=== PATIENT | male | born 1980 | race Caucasian/White ===

== ENCOUNTER 2021-06-05 10:35 | Emergency (ER) | payer BC, SELFPAY ==
--- NOTE | 2021-06-05 10:45 | ED.SKABFB ---
HPI - Skin/Abscess/Foreign Bdy General Chief complaint: Skin/Abscess/Foreign Body Stated complaint: Rash Time Seen by Provider: 06/05/21 12:02 Source: patient and RN notes reviewed Mode of arrival: ambulatory Limitations: no limitations History of Present Illness HPI narrative: 40-year-old male presents concern for rash. He reports rash started on the top of his feet and is itchy. Reports rash spread to his legs, arms, torso. Reports he has been using athlete's foot cream to the feet without relief. Denies shortness of breath, wheezing, with swollen lips, swollen tongue, nausea, vomiting, fever. He denies any new medications, personal care products, home products. Reports he did start wearing new shoes for work. MD complaint: rash Related Data Allergies Allergy/AdvReac Type Severity Reaction Status Date / Time No Known Allergies Allergy Verified 06/05/21 11:15 Review of Systems Review of Systems: CONSTITUTIONAL: Denies malaise, chills, sweats, or fever. EYES: Denies redness, or discharge. ENT: Denies rhinorrhea, congestion, swollen lips, swollen tongue CARDIOVASCULAR: Denies chest pain, palpitations, or edema. RESPIRATORY: Denies cough or dyspnea. GASTROINTESTINAL: Denies abdominal pain, nausea, vomiting SKIN: Reports itchy rash to the top of his feet, legs, arms, torso MUSCULOSKELETAL: Denies joint painor myalgia. NEUROLOGIC: Denies headache. All systems reviewed & are unremarkable except as noted in HPI and below PMFSH Comments At time of signature, agree with nursing past medical, surgical, social and family history. There is no relevant family history pertinent to the presenting complaint Exam Narrative: GENERAL: Well-appearing, well-nourished, and in no acute distress. HEAD: Normocephalic, atraumatic. EYES: PERRLA, conjunctivae clear, and EOMI. ENT: Mucous membranes moist. Oropharynx without edema, erythema or lesions. NECK: Supple. No lymphadenopathy CHEST: Clear to auscultation. No respiratory distress. HEART: Regular rate and rhythm. SKIN: Warm, dry. Discrete papular rash noted to arms and legs, dorsal aspect of feet has large patches of confluent papules and macules NEURO: Alert and oriented x3. PSYCH: Normal mood and affect Course Course Emergency Course: Patient is aware of diagnosis, understands and agrees to treatment plan. Anticipatory guidance given. Patient agrees to follow-up as directed and is aware of reasons to seek care at the emergency department. Portions of this record may have been created with voice recognition software Level of Care: Express Care Visit Vital Signs Vital signs: Reviewed. MDM - Skin/Abscess/Foreign Bdy MDM Narrative Medical decision making narrative: Does not appear at this time to be erythema multiforme, bullous, SJS, TEN; no evidence at this time to suggest RMSF, endocarditis or Lyme disease; patient looks well, nontoxic and is tolerating oral intake; no neurologic signs or symptoms; no headache, photophobia or neck pain; afebrile; appropriate for initial outpatient treatment; discussed the importance of follow-up, patient agrees; question, viral exanthema, contact dermatitis, allergic dermatitis, eczema, urticaria, tinea. No soft palate or uvula edema, no tongue, lip edema or other mucosal involvement, no respiratory compromise, no stridor, no wheezing, no wheezing, no history of syncope, no hypotension, no nausea, vomiting, or diarrhea. Instructed patient to go to nearest ER immediately for any worsening symptoms including but not limited to: fever, spreading rash, pain, sore throat, headache, dizziness, chest pain, trouble breathing, or any symptoms concerning to the patient. Critical Care Time Critical Care Time Critical Care Time: No Discharge Plan Discharge Clinical Impression: Acute eruption of skin Patient Disposition: Home, Self-Care Condition: Stable Instructions: Acute Rash (ED) Additional Instructions: Wash the area with gentle soap and water
[2021-06-05 11:09] VITALS: BP 124/75; PULSE 82; RESP 16; TEMP 36.4; O2SAT 98
== END 2021-06-05 12:12 | disposition home or self-care (01) ==
PROVIDERS: Emergency Provider Nurse Practitioner
DX: R21 Rash and other nonspecific skin eruption (principal)
CPT/HCPCS: 99213; G0463

== ENCOUNTER 2022-08-19 09:53 | Emergency (ER) | payer BC, SELFPAY ==
[2022-08-19 10:00] VITALS: BP 122/76; PULSE 74; RESP 14; TEMP 36.6; O2SAT 98
--- NOTE | 2022-08-19 10:49 | ED.ABDPAIN ---
HPI - Abdominal Pain General Chief Complaint: Abdominal Pain Stated Complaint: abdo pain/blood in urine Source: patient Mode of arrival: ambulatory Limitations: no limitations History of Present Illness HPI narrative: Patient presents for evaluation of abdominal pain. Symptom onset 3-4 years ago. Pain occurs every other day. He states the last approximately 1 hour and is relieved by getting in a shower or taking ibuprofen. He reports sharp pains in the lower abdomen. He denies any fever, chills, nausea, vomiting or urinary symptoms. He has a bowel movement every other day. He noted blood on tissue when wiping after a bowel movement earlier today. He has to his boss at work if he could leave today. He is advised to get a work note, for which he came to the facility. Related Data Home Medications Medication Instructions Recorded Confirmed No Home Medications 08/19/22 08/19/22 Allergies Allergy/AdvReac Type Severity Reaction Status Date / Time No Known Allergies Allergy Verified 08/19/22 10:15 Review of Systems Review of Systems: CONSTITUTIONAL: Denies fever, chills, or sweats. EYES: Denies visual changes, redness, or discharge. ENT: Denies rhinorrhea, congestion, sore throat, or otalgia. CARDIOVASCULAR: Denies chest pain, palpitations, or edema. RESPIRATORY: Denies cough or dyspnea. GASTROINTESTINAL: Reports abdominal pain, and 1 episode of blood on the tissue when wiping following a bowel movement. GENITOURINARY: Denies dysuria or hematuria. SKIN: Denies rash or itching. MUSCULOSKELETAL: Denies back pain, joint pain, or myalgia. NEUROLOGIC: Denies headache, numbness, dizziness, or weakness. PSYCHIATRIC: Denies anxiety or depression. FORMERLY [facility], [facility] Past Medical History Medical History No pertinent past medical history Surgical History Surgical History Past surgical history of mastectomy Family History Family History Mother Family history non-contributory Social History Social History Smoking status: Never smoker Alcohol intake: never Substance use: never Gender identity (if verbalized by the patient): Male Spiritual care concerns: No Exam Narrative: GENERAL: Well-appearing, well-nourished, and in no acute distress. HEAD: Normocephalic, atraumatic. EYES: PERRLA and EOMI. ENT: Nares clear, no rhinorrhea or epistaxis. Mucous membranes moist. Oropharynx without tonsillar hypertrophy exudate or other lesions. Bilateral TMs pearly vences nonbulging NECK: Supple. No adenopathy or masses. No carotid bruits or JVD CHEST: Clear to auscultation. No respiratory distress. No wheezes rales or rhonchi HEART: Regular rate and rhythm. No murmur heard. Normal peripheral pulses. ABDOMEN: Soft, nontender, nondistended, normal active bowel sounds. EXTREMITIES: Normal range of motion. No edema. SKIN: Warm, dry, no rash. NEURO: No focal deficits. Alert and oriented x3. PSYCH: Normal mood and affect. Course Course Emergency Course: This is a 41-year-old male who presented for evaluation of abdominal pain. This is a chronic issue. He did have 1 episode where he noted blood on the tissue when wiping following a bowel movement. I do not appreciate any hemorrhoids on exam. He has no abdominal tenderness. I believe he can be worked up outpatient by GI. I did offer to transfer him to the ER which he declined. Should go to the emergency department for worsening symptoms. Provided with GI follow-up information. Patient in agreement with plan of care. Level of Care: Express Care Visit Vital Signs Vital signs: Vital Signs Temperature 36.6 C 08/19/22 10:00 Pulse Rate 74 08/19/22 10:00 Respiratory Rate 14 08/19/22 10:00 Blood Pressure 122/76 08/19/22
== END 2022-08-19 10:50 | disposition home or self-care (01) ==
PROVIDERS: Emergency Provider Nurse Practitioner
DX: R10.84 Generalized abdominal pain (principal)
CPT/HCPCS: 99212; G0463

== ENCOUNTER 2023-05-14 10:23 | Emergency (ER) | payer BC, SELFPAY ==
--- NOTE | 2023-05-14 10:25 | ECG_ITS ---
Measurements Intervals [place] Rate: 70 P: 40 IN: 165 QRS: 1 QRSD: 101 T: 42 QT: 359 QTc: 388 Interpretive Statements SINUS RHYTHM BASELINE ARTIFACT LIMITS INTERPRETATION NO PREVIOUS ECG AVAILABLE FOR COMPARISON Electronically Signed On 05-14-2023 15:18:23 CLEAN UP PERSON by Elvis Obrien M.D.
[2023-05-14 11:41] VITALS: BP 114/70; PULSE 66; RESP 16; TEMP 36.5; O2SAT 98
--- NOTE | 2023-05-14 13:28 | ED.ARRPALP ---
HPI - Arrhythmia/Palpitations General Chief Complaint: Arrhythmia/Palpitations Stated Complaint: migraine, palpatations Time Seen by Provider: 05/14/23 11:59 Source: patient Limitations: no limitations History of Present Illness HPI narrative: Patient is a 42-year-old male presents to the emergency department complaining of a headache and lightheadedness. Patient notes around 9:00 a.m. 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 Patient is to history of migraines and this feels similar to his history of migraines. Patient states he has never seen a neurologist however receive his primary on for Neurology referral. Patient is to history of imaging of his head. Patient denies anyone having some symptoms around. Patient admits to a recent illness in which she had influenza in his chest getting over this. Patient admits to taking DayQuil and NyQuil for that. Patient admits to his urine being darker in color as of late has been maintaining the greatest hydration status. Patient denies any chest pain, difficulty breathing, recent injuries, numbness, weakness, nausea, vomiting, diarrhea, melena, hematochezia, confusion, fever, vision changes. Patient denies any history of abnormal heart rhythms. Related Data Allergies Allergy/AdvReac Type Severity Reaction Status Date / Time No Known Allergies Allergy Verified 05/14/23 11:45 Review of Systems Review of Systems: A 10 system review of systems was completed on the patient and is negative except for what is stated in the HPI. Nursing and ancillary documentation was reviewed. [facility] Past Medical History Medical History (Updated 05/14/23 @ 13:33 by Amado Prasad DO) No pertinent past medical history Surgical History Surgical History Past surgical history of mastectomy Family History Family History Mother Family history non-contributory Social History Social History Smoking status: Never smoker Alcohol intake: never Substance use: never Gender identity (if verbalized by the patient): Male Spiritual care concerns: No Comments At time of signature, I have reviewed and agree with nursing past medical, surgical, social and family history unless otherwise noted. Please see the nursing chart for further information. There is no relevant family history pertinent to the presenting complaint. Exam Narrative: CONST: No acute distress. Well nourished. HENMT: Head is normocephalic and atraumatic. Moist mucous membranes. No posterior oropharynx erythema. No temporal artery tenderness palpation. EYES: No conjunctival icterus, injection, or pallor. PERRL. NECK: No meningeal signs. RESP: Able to speak in full sentences. Normal respiratory effort. CTAB. CARDIO: Regular rate. Regular rhythm. 2+ DP and radial pulses bilaterally. GI: Nondistended. No tenderness to palpation. Soft. : No CVA tenderness to palpation. SKIN: No rashes or lesions noted on exposed skin. NEURO: Oriented x3. Moves all extremities. No focal neurological deficits. Cranial nerves 2-12 intact. EXTREM/MSK/BACK: No pedal edema. PSYCH: Normal affect. Course Vital Signs Vital signs: Vital Signs Temperature 97.7 F 05/14/23 11:41 Pulse Rate 66 05/14/23 11:41 Respiratory Rate 16 05/14/23 11:41 Blood Pressure 114/70 05/14/23 11:41 Pulse Oximetry 98 05/14/23 11:41 Temperature 97.7 F 05/14/23 11:41 Pulse Rate 66 05/14/23 11:41 Respiratory Rate 16 05/14/23 11:
--- NOTE | 2023-05-14 13:57 | PC.NURSE ---
Pt refuses lab work and IV. Stated he just wants to go home . ERP made aware.
[2023-05-14 14:17] LABS: Influenza A QL RT-PCR Negative (Negative); Influenza B QL RT-PCR Negative (Negative); RSV RNA, RT-PCR Negative (Negative); SARS-CoV-2 RNA PCR Negative (Negative)
== END 2023-05-14 14:12 | disposition home or self-care (01) ==
PROVIDERS: Emergency Provider Student in an Organized Health Care Education/Training Program
DX: G43.909 Migraine, unspecified, not intractable, without status migrainosus (principal); Z20.822 Contact with and (suspected) exposure to COVID-19
CPT/HCPCS: 87637; 93005; 99283

== ENCOUNTER 2024-12-30 11:55 | Emergency (ER) | payer BC, SELFPAY ==
--- NOTE | 2024-12-30 11:57 | ED.GENADULT ---
HPI - General Adult General Chief complaint: Abdominal Pain Stated complaint: L side pain Time Seen by Provider: 12/30/24 11:56 Source: patient Mode of arrival: ambulatory Limitations: no limitations History of Present Illness HPI narrative: Pt is a 44 y/o male presenting with c/o LLQ pain. Pain began suddenly at 6am this morning. Additional sx reported include nausea, dizziness. LBM was Saturday and he states that is abnormal for him. 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 NO additional complaints. Related Data Home Medications ?Medication ?Instructions ?Recorded ?Confirmed ?Last Taken ?Type atogepant 60 mg tablet (Qulipta) mg 12/30/24 Unknown History Allergies Allergy/AdvReac Type Severity Reaction Status Date / Time No Known Allergies Allergy Verified 12/30/24 12:11 Review of Systems Review of Systems: CONSTITUTIONAL: Denies body aches, fever, chills, or sweats. EYES: Denies visual changes, redness, or discharge. ENT: Denies rhinorrhea, congestion, sore throat, or otalgia. CARDIOVASCULAR: Denies chest pain, palpitations, or edema. RESPIRATORY: Denies cough or dyspnea. GASTROINTESTINAL: Reports abdominal pain, nausea, denies vomiting, or diarrhea. GENITOURINARY: Denies dysuria or hematuria. SKIN: Denies rash, itching, or wounds. MUSCULOSKELETAL: Denies back pain, joint pain, or myalgia. NEUROLOGIC: reports dizziness,Denies headache, numbness, tingling, or weakness. PSYCH: Denies depression or anxiety. All systems reviewed & are unremarkable except as noted in HPI and below PMFSH Past Medical History Medical History No pertinent past medical history Surgical History Surgical History Past surgical history of mastectomy Family History Family History Mother Family history non-contributory Social History Social History Smoking status: Never smoker Alcohol intake: never Substance use: never Gender identity (if verbalized by the patient): Male Spiritual care concerns: No Exam Narrative: GENERAL: Well-appearing, well-nourished, and in no acute distress. HEAD: Normocephalic, atraumatic. EYES: EOMI. No redness or drainage. Conjunctivae normal. ENT: Mucous membranes pink and moist. NECK: Normal AROM. Supple. CHEST: No respiratory distress. Clear to auscultation. HEART: Regular rate and rhythm. No murmur appreciated. Normal peripheral pulses. ABDOMEN: Soft, nondistended, normal active bowel sounds. Mild TTP to LLQ MUSCULOSKELETAL: No bony tenderness. EXTREMITIES: Normal range of motion. No edema. SKIN: Warm, dry, no rash. Capillary refill normal. Normal skin turgor. NEURO: No focal deficits. Alert and oriented x3. Gait steady. PSYCH: Normal affect. No signs of depression or anxiety. Course Course Level of Care: Express Care Visit Vital Signs Vital signs: Vital Signs Temperature 97.9 F 12/30/24 12:08 Pulse Rate 76 12/30/24 12:08 Respiratory Rate 16 12/30/24 12:08 Blood Pressure 110/81 12/30/24 12:08 Pulse Oximetry 98 12/30/24 12:08 Temperature 97.9 F 12/30/24 12:08 Pulse Rate 76 12/30/24 12:08 Respiratory Rate 16 12/30/24 12:08 Blood Pressure 110/81 12/30/24 12:08 Pulse Oximetry 98 12/30/24 12:08 Medical Decision Making MDM Narrative Medical decision making narrative: Given the patients reported sx, I recommended he be transferred to ER via POV for further diagnostic work up. Pt initially agreed and then when nurse went in to have him sign transfer paper, he declined. Pt then made aware that he is leaving AMA--pt refused to sign AMA paper. Vital Signs Vital Signs: Vital Signs Temperature 97.9 F 12/30/24 12:08 Pulse Rate 76 12/30/24 12:08 Respiratory Rate 16 12/30/24 12:08 Blood Pressure 110/81 12/30/24 12:08 Pulse Oximetry 98 12/30/24 12:08 Temperature 97.9 F 12/30/24 12:08 Pulse Rate 76 12/30/24 12:08 Respiratory Rate 16 12/30/24 12:08 Blood Pressure 110/81 12/30/24 12:08 Pulse Oximetry 98 12/30/24 12:08 Discharge Plan Discharge Clinical Impression: Abdominal pain, acute, left lower quadrant, Nausea, Constipation, Dizziness Patient Disposition: Left Against Medical Advice Condition: Stable Patient Language: Grenadian Prescriptions: No Action Qulipta 60 mg tablet Follow-up/Referrals: UNKNOWN,DOCTOR [Primary Care Provider] Time of Disposition: 12:25
[2024-12-30 12:08] VITALS: BP 110/81; PULSE 76; RESP 16; TEMP 36.6; O2SAT 98
== END 2024-12-30 12:33 | disposition left against medical advice (07) ==
PROVIDERS: Emergency Provider Registered Nurse
DX: R10.32 Left lower quadrant pain (principal); R11.0 Nausea; K59.00 Constipation, unspecified; R42 Dizziness and giddiness
CPT/HCPCS: 99211; G0463

== ENCOUNTER 2025-03-10 13:13 | Emergency (ER) | payer BC, SELFPAY ==
--- NOTE | ~2025-03-10 | XR_ITS ---
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 Technique: 2 views obtained. Findings: The lungs are clear, no effusion. No pneumothorax. Heart is normal size. Mediastinal and hilar contours are within normal limits. Bony thorax no acute abnormality. Impression: No acute cardiopulmonary abnormality. Reviewed, dictated and finalized at location P. TEGIC ALLIANCES MANAGER Impression: No acute cardiopulmonary abnormality.
--- NOTE | ~2025-03-10 | CT_ITS ---
EXAM/PROCEDURE: CTA chest abdomen pelvis HISTORY: aorta. CP rad to R shoulder COMPARISON: None available. TECHNIQUE: Contrast-enhanced CT angiography FINDINGS: Within the chest, the heart and great vessels appear normal. No thoracic aortic aneurysm, dissection or central/large pulmonary emboli. Three-vessel left-sided arch appears normal. Visualized portions of the subclavian arteries on both sides appear patent. Heart size normal with no pericardial effusion or bulky lymphadenopathy. Lungs are clear. In the abdomen and pelvis, the abdominal aorta, celiac axis, both mesenteric and renal arteries are patent. Pelvic inflow and outflow arteries are patent. The left renal vein is anterior to the aorta, although there is an accessory smaller left renal vein that is retroaortic. 6 mm upper pole nonobstructing stone and 2 mm nonobstructing mid pole stone. No left-sided stones. 2.5 cm simple left renal cyst. No hydroureteronephrosis. Urinary bladder normal prostate borderline enlarged. Normal size appendix. Contracted gallbladder. Pancreas liver spleen stomach and adrenal glands appear normal. No bulky mesenteric or retroperitoneal lymphadenopathy or masses seen. The bones appear intact. Mild degenerative changes throughout the thoracolumbar spine. Mild degenerative changes in both hips as well. IMPRESSION: 1. No aortic aneurysm or dissection in the chest abdomen or pelvis. The arteries all appear within normal limits. 2. Other chronic appearing findings as above. Reviewed, dictated and finalized at location A. SCOPY NURSE IMPRESSION: 1. No aortic aneurysm or dissection in the chest abdomen or pelvis. The arterie s all appear within normal limits. 2. Other chronic appearing findings as above.
--- OUTSIDE RECORDS SUMMARY | 2025-03-10 12:45 | XMS_ITS | Encounter Summary ---
Author Organization [facility] Address [address] [place] [address] Care Team Providers Care Vp Scientific Name Role Phone Starla Frazier NP Primary Care Provider Reason for Visit * Reason Comments Epigastric Pain Started this morning . Rating pain at 8 on a 1-10 pain scale. Lots of burping. Constant feeling of pain. Tums received at work. Encounter Details Date Type Department Care Team (Late st Contact Info) Description 03/10/2025 12:45 PM R D MANAGER Office Visit [facility] at [address] [id number] Roro Murphy PA [address] [place] [address] [address] [place] [address] Epigastric pain (Primary Dx) Social History Tobacco Use Types Packs/Day Years Used Date Smoking Tobacco: Former Vaping Smokeless Tobacco: Never Alcohol Use Standard Drinks/Week Comments Never 0 (1 standard drink = 0.6 oz pur e alcohol) PHQ-2 Answer Date Recorded PHQ-2 Total Score (If total score is 3 or more points, staff should administer the PHQ-9) 0 02/18/2025 AUDIT-C Answer Date Recorded Q1: How often do you have a drink containing alcohol? Never 12/20/2024 Q2: How many drinks containi ng alcohol do you have on a typical day when you are drinking? Patient does not drink Q3: How often do you have si x or more drinks on one occasion? Never 12/20/2024 Personal Safety Answer Date Recorded Have you ever been in or are you currently in a harmful physical or emotional relationship or is someone making you feel afraid or unsafe? Denies 02/21/2025 Sex and Gender Information Value Date Recorded Sex Assigned at Not on file Legal Sex Male 7:44 PM CDT Gender Identity Not on file Sexual Orientation Not on file documented as of this encounter Last Filed Vital Signs Vital Sign Reading Time Taken Comments Blood Pressure 120/77 03/10/2025 12:32 PM R D MANAGER Pulse 78 03/10/2025 12:32 PM R D MANAGER Temperature 36.8 C (98.3 F) 03/10/2025 12:32 PM R D MANAGER Respiratory Rate 20 03/10/2025 12:32 PM R D MANAGER Oxygen Saturation 98% 03/10/2025 12:32 PM R D MANAGER Inhaled Oxygen Concentration - - Weight 96.2 kg (212 lb) 03/10/2025 12:32 PM R D MANAGER Height 182.9 cm (6') 03/10/2025 12:32 PM R D MANAGER Body Mass Index 28.75 03/10/2025 12:32 PM R D MANAGER documented in this encounter Progress Notes * Roro Murphy PA - 03/10/2025 12:45 PM CST Images from the original note were not included. Subjective/Objective Patient ID: Steve Richards is a 44 y.o. male. This patient has verbally consented to recording this visit in order to utilize AI technology in generating this note. Chief Complaint Epigastric Pain (Started this morning. Rating pain at 8 on a 1-10 pain scale. Lots of burping. Constant feeling of pain. Tums received at work. ) History of Present Illness Steve Richards is a 44 year old male who presents with abdominal pain. Epigastric pain - Severe burning pain in the epigastric region since this morning - Pain intensity rated 8/10 - Radiates to the right shoulder and back of the neck - No relief with Tums taken at work - No associated nausea, vomiting, diarrhea, or fever - No shortness of breath - Initially described as thought I was having a heart attack - No hx of GERD Review of Systems All other systems reviewed and are negative. Physical Exam Physical Exam Constitutional: General: He is not in acute distress. HENT: Head: Normocephalic and atraumatic. Right Ear: External ear normal. Left Ear: External ear normal. Nose: Nose normal. Mouth/Throat: Pharynx: Oropharynx is clear. Eyes: Pupils: Pupils are equal, round, and reactive to light. Cardiovascular: Rate and Rhythm: Normal rate and regular rhythm. Pulmonary: Effort: Pulmonary effort is normal. No respiratory distress. Breath sounds: Normal breath sounds. No wheezing or rhonchi. Musculoskeletal: General: Normal range of motion. Cervical back: Normal range of motion. Skin: General: Skin is warm and dry. Neurological: General: No focal deficit present. Mental Status: He is alert and oriented to person, place, and time. Psychiatric: Mood and Affect: Mood normal. Behavior: Behavior normal. Vitals: 03/10/25 1232 BP: 120/77 Pulse: 78 Resp: 20 Temp: 36.8 ??C (98.3 ??F) TempSrc: Oral SpO2: 98% Weight: 96.2 kg (212 lb) Height: 182.9 cm (6') No results found. Past Medical History: Diagnosis Date GERD (gastroesophageal reflux disease) Migraine with aura Current Outpatient Medications: atogepant (Qulipta) 60 mg tablet, Take 60 mg by mouth daily, Disp: 30 tablet, Rfl: 11 cyclobenzaprine (FLEXERIL) 10 mg tablet, Take 1 tablet (10 mg total) by mouth 2 (two) times a day as needed for muscle spasms, Disp: 20 tablet, Rfl: 0 ibuprofen (ADVIL,MOTRIN) 800 mg tablet, Take 1 tablet (800 mg total) by mouth every 6 (six) hours as needed for pain, Disp: 90 tablet, Rfl: 0 omeprazole (PriLOSEC) 40 mg capsule, Take 1 capsule (40 mg total) by mouth daily, Disp: , Rfl: rizatriptan (MAXALT) 10 mg tablet, Take 1 tablet (10 mg total) by mouth once as needed for migraineMay repeat in 2 hours if unresolved. Do not exceed 30 mg in 24 hours., Disp: 9 tablet, Rfl: 3 triamcinolone (KENALOG) 0.5 % ointment, Apply topically 2 (two) times a day, Disp: 30 g, Rfl: 0 No Known Allergies Social History Tobacco Use Smoking status: Former Types: Vaping Smokeless tobacco: Never Substance and Sexual Activity Drug use: Never Sexual activity: Defer Alcohol Use: Not At Risk (12/20/2024) AUDIT-C Frequency of Alcohol Consumption: Never Average Number of Drinks: Patient does not drink Frequency of Binge Drinking: Never Past Surgical History: Procedure Laterality Date NO PAST SURGERIES Procedures Assessment/Plan Results No results found for this or any previous visit (from the past 4 hours). Assessment & Plan Acute onset epigastric pain with differential including GERD, cardiac etiology, pancreatitis, cholecystitis, etc. - Referred to emergency room for further evaluation and management Diagnoses and all orders for this visit: Epigastric pain (Primary) Disposition ER ANNMARIE Bernal Cosigned by Albert Lopez MD at 03/10/2025 8:44 PM R D MANAGER R D MANAGER R D MANAGER documented in this encounter Plan of Treatment Not on file documented as of this encounter Visit Diagnoses Diagnosis Epigastric pain- Primary Abdominal pain, epigastric documented in this encounter Care Teams Vp Scientific Relationship Specialty Start Date End Date Starla Frazier NP [address] [place] [address] DR FERRELL [address] [place] [id number] PCP - General Family Medicine 02/18/25 documented as of this encounter
--- NOTE | 2025-03-10 13:15 | ECG_ITS ---
Test Date: 2025-03-10 13:20:32 Measurements Intervals [place] Rate: 82 P: 29 MT: 181 QRS: -2 QRSD: 102 T: 24 QT: 347 QTc: 405 Interpretive Statements SINUS RHYTHM INCOMPLETE RIGHT BUNDLE BRANCH BLOCK BASELINE ARTIFACT- I, II, III, AVR, AVL, AVF, V1 BORDERLINE ECG No previous ECG available for comparison Electronically Signed On 03-10-2025 13:24:19 HUMAN RESOURCES HR GENERALIST by Haresh Mcgraw D.O.
[2025-03-10 13:16] VITALS: BP 143/90; PULSE 80; RESP 16; TEMP 36.4; O2SAT 100
[2025-03-10 13:34] LABS: Hematocrit 45.6 % (42.0-52.0); Hemoglobin 15.2 g/dL (14.0-18.0); Immature Granulocyte Percent A 0.3 % (0-0.5); Lymphocytes Absolute Auto 2.72 K/mm3 (0.9-3.2); Mean Corpuscular HGB Conc 33.3 g/dl (32-36); Mean Corpuscular Hemoglobin 28.7 pg (26-34); Mean Corpuscular Volume 86.2 fl (80-100); Nucleated Red Blood Cells Absolute Auto 0.000 K/mm3 (0.0-0.012); Nucleated Red Blood Cells Perc 0.0 % (0.0-0.2); Platelet Count Result 337 k/mm3 (150-375); Red Blood Count 5.29 M/mm3 (4.6-6.20); White Blood Count 14.8 K/mm3 (4.5-10.0)
[2025-03-10 13:54] LABS: INR 0.9; Partial Thromboplastin Time 26.3 Seconds (22.3-36.8); Prothrombin Time 12.4 Seconds (11.1-14.7)
[2025-03-10 14:17] LABS: Alanine Aminotransferase 30 U/L (6-50); Albumin Level 4.8 g/dL (3.5-5.1); Alkaline Phosphatase 85 U/L (38-126); Anion Gap 10 mmol/L (4-12); Aspartate Amino Transferase 34 U/L (17-59); Bilirubin,Total 0.4 mg/dL (0.2-1.3); Blood Urea Nitrogen 13 mg/dL (9-20); Calcium 10.3 mg/dL (8.4-10.2); Carbon Dioxide 29 mmol/L (22-30); Chloride 101 mmol/L (98-107); Estimated CRCL calculation 90 ml/min; Estimated Glomerular Filt Rate > 60; Glucose 118 mg/dL (65-110); Lipase 82 U/L (23-300); Potassium 4.3 mmol/L (3.4-5.0); Sodium 140 mmol/L (137-145); Total Protein 8.1 g/dL (6.3-8.2)
[2025-03-10 14:28] LABS: Troponin I < 0.012 ng/mL (0.000-0.034)
[2025-03-10 16:19] VITALS: BP 133/80; PULSE 89; RESP 20; O2SAT 100
--- NOTE | 2025-03-10 16:40 | ECG_ITS ---
Test Date: 2025-03-10 16:42:16 Measurements Intervals [place] Rate: 80 P: 34 [place]: 172 QRS: -8 QRSD: 110 T: 25 QT: 349 QTc: 404 Interpretive Statements SINUS RHYTHM INCOMPLETE RIGHT BUNDLE BRANCH BLOCK BORDERLINE ECG Compared to ECG 03/10/2025 13:20:32 NO SIGNIFICANT CHANGE Electronically Signed On 03-10-2025 19:56:47 CHIMNEY BUILDER by Haresh Mcgraw D.O.
[2025-03-10] MEDS: MORPHINE SULFATE (*CRX) 4 MG/ML INJ IV PUSH (17:10)
[2025-03-10 17:11] LABS: Troponin I < 0.012 ng/mL (0.000-0.034)
[2025-03-10] MEDS: FAMOTIDINE 20 MG/2 ML VIAL IV PUSH (17:41)
[2025-03-10] MEDS: PANTOPRAZOLE SODIUM IV 40 MG VIAL IV PUSH (17:41)
[2025-03-10 17:44] VITALS: BP 122/86; PULSE 88; RESP 20; O2SAT 96
--- NOTE | 2025-03-10 19:37 | ED_ITS ---
HPI - Chest Pain General Chief Complaint: Chest Pain Stated Complaint: CP Time Seen by Provider: 03/10/25 15:01 History of Present Illness HPI narrative: Patient was having some slight epigastric discomfort, went to work and had a [employer] and started having more epigastric pain, feels like it is going to his right shoulder. Related Data Home Medications ?Medication ?Instructions ?Recorded ?Confirmed ?Last Taken ?Type atogepant 60 mg tablet (Qulipta) mg 12/30/24 Unknown History Allergies Allergy/AdvReac Type Severity Reaction Status Date / Time No Known Allergies Allergy Verified 03/10/25 13:19 Review of Systems 2 Review of Systems: All systems reviewed & are unremarkable except as noted in HPI and below PMFSH Past Medical History Medical History No pertinent past medical history Surgical History Surgical History Past surgical history of mastectomy Family History Family History Mother Family history non-contributory Social History Social History Smoking status: Never smoker Alcohol intake: never Substance use: never Gender identity (if verbalized by the patient): Male Spiritual care concerns: No Exam 2 Narrative: EXAMINATION OF ORGAN SYSTEMS/BODY AREAS: Constitutional: Vital signs per nursing GENERAL:No acute distress, non-toxic appearing. HEAD: Normal with no signs of head trauma. EYES: EOMI, conjunctiva normal ENT: Hearing grossly intact LUNGS: Nonlabored breathing. HEART: Regular rate and rhythm ABD: Soft, slight epigastric tenderness EXT: Normal range of motion SKIN: No rashes or lesions. NEURO: Alert. No gross focal sensory or strength deficits. PSYCH: Normal affect Course Vital Signs Vital signs: Vital Signs Temperature 97.6 F 03/10/25 13:16 Pulse Rate 80 03/10/25 13:16 Respiratory Rate 16 03/10/25 13:16 Blood Pressure 143/90 H 03/10/25 13:16 Pulse Oximetry 100 03/10/25 13:16 Oxygen Delivery Room Air 03/10/25 13:16 Temperature 97.6 F 03/10/25 13:16 Pulse Rate 88 03/10/25 17:44 Respiratory Rate 20 03/10/25 17:44 Blood Pressure 122/86 03/10/25 17:44 Pulse Oximetry 96 03/10/25 17:44 Oxygen Delivery Room Air 03/10/25 16:19 [facility] MDM Narrative Medical decision making narrative: ED COURSE AND MEDICAL DECISION MAKIN-year-old male presenting with chest pain. EKG done in triage negative for acute ischemic changes. Cardiac workup is initiated. EKG: Performed in triage and interpreted by me. Normal sinus rhythm. Rate 82. Normal axis. [place] normal. QRS duration normal. QTc normal. No pathologic Q waves. No ST segment elevation or depression to suggest acute ischemia. No RV strain pattern. HEART score is 0 with no acute ischemic changes on EKG and negative troponin making ACS unlikely. Wells low risk with negative PERC making PE unlikely I did consider possible dissection, biliary colic, gastritis/PUD. Given small dose of morphine, Pepcid, Protonix. EKG - 12-Lead: Performed at 1642. Interpreted by me. Sinus rhythm. Rate 80. Normal axis. [place]-interval normal. QRS duration normal. QTc normal. No ST segment elevation or depression. T-wave normal. Impression: No EKG evidence of acute ischemia or dysrhythmia. On repeat evaluation just prior to discharge, the patient is no acute distress; 2nd troponin is negative. I had a long discussion with the patient and with shared decision making, he is comfortable with outpatient management. He was given clear return instructions by myself in person as well as on discharge paperwork. Differential Diagnosis Differential Diagnosis: gastritis, PUD, ACS, dissection, biliary colic Lab Data 03/10/25 13:29 03/10/25 13:29 Labs: Lab Results 03/10/25 03/10/25 Range/Units 13:29 16:39 WBC 14.8 H (4.5-10.0) K/mm3 RBC 5.29 (4.6-6.20) M/mm3 Hgb 15.2 (14.0-18.0) g/dL Hct 45.6 (42.0-52.0) % MCV 86.2 (80-100) fl MCH 28.7 (26-34) pg MCHC 33.3 (32-36) g/dl RDW 12.8 (11.5-14.5) % Plt Count 337 (150-375) k/mm3 MPV 8.9 (7.4-10.4) fl Immature Gran % (Auto) 0.3 (0-0.5) % Neut % (Auto) 72.5 (45.5-73.1) % Lymph % (Auto) 18.4 (18.3-44.2) % Davidson % (Auto) 6.3 (2.6-8.5) % Eos % (Auto) 2.0 (0-4.4) % Baso % (Auto) 0.5 (0.2-1.2) % Lymph # (Auto) 2.72 (0.9-3.2) K/mm3 Davidson # (Auto) 0.9 H (0.1-0.6) K/mm3 Eos # (Auto) 0.3 (0-0.3) K/mm3 Baso # (Auto) 0.1 (0.0-0.1) K/mm3 Abs Immat Gran (auto) 0.05 H (0.00-0.031) K/mm3 Absolute Neuts (auto) 10.7 H (1.3-6.7) K/mm3 Absolute Nucleated RBC 0.000 (0.0-0.012) K/mm3 Nucleated RBC % 0.0 (0.0-0.2) % PT 12.4 (11.1-14.7) Seconds INR 0.9 APTT 26.3 (22.3-36.8) Seconds Sodium 140 (137-145) mmol/L Potassium 4.3 (3.4-5.0) mmol/L Chloride 101 (98-107) mmol/L Carbon Dioxide 29 (22-30) mmol/L Anion Gap 10 (4-12) mmol/L BUN 13 (9-20) mg/dL Creatinine 1.02 (0.7-1.3) mg/dL Estim Creat Clear Calc 90 ml/min Estimated GFR > 60 (59 - ) Glucose 118 H (65-110) mg/dL Calcium 10.3 H (8.4-10.2) mg/dL Total Bilirubin 0.4 (0.2-1.3) mg/dL AST 34 (17-59) U/L ALT 30 (6-50) U/L Alkaline Phosphatase 85 (38-126) U/L Troponin I < 0.012 < 0.012 (0.000-0.034) ng/mL Total Protein 8.1 (6.3-8.2) g/dL Albumin 4.8 (3.5-5.1) g/dL Lipase 82 (23-300) U/L Imaging Data Radiologist's impression: ITS Impressions Chest X-Ray 03/10/25 13:53 Impression: No acute cardiopulmonary abnormality. Chest/Abdomen/Pelvis CTA 03/10/25 15:40 IMPRESSION: 1. No aortic aneurysm or dissection in the chest abdomen or pelvis. The arteries all appear within normal limits. 2. Other chronic appearing findings as above. Discharge Plan Discharge Clinical Impression: Atypical chest pain Patient Disposition: Home Condition: Stable Instructions: Chest Pain (ED) Additional Instructions: Try to avoid any spicy, greasy or fried, acidic foods, sodas or caffeine, and alcohol. Follow-up with your PCP and a GI specialist and come back to the ER for any further issues. Patient Language: [place] Citizen Prescriptions: New alum-mag hydroxide-simeth [Maalox Advanced] 200-200-20 mg/5 mL suspension 10 ml PO QID PRN (Reason: dyspepsia) Qty: 200 0RF Rx Instructions: administer between meals and at bedtime famotidine 20 mg tablet 20 mg PO DAILY Qty: 30 0RF No Action Qulipta 60 mg tablet Follow-up/Referrals: Bert Skaggs MD [Physician, Gastroenterology] - 2 Days UNKNOWN,DOCTOR [Primary Care Provider] Stand Alone Forms: Work/School Release IP
--- OUTSIDE RECORDS SUMMARY | 2025-03-10 20:51 | XMS_ITS | Clinical Summary ---
Author Organization [facility] Address [address] [place] [address] Care Team Providers Care Pmo Analyst Name Role Phone Starla Frazier NP Primary Care Provider Allergies No known active allergies Medications omeprazole (PriLOSEC) 40 mg capsule Take 1 capsule (40 mg total) by mouth daily Active atogepant (Qulipta) 60 mg tablet Take 60 mg by mouth daily 30 tablet 11 06/26/19 25 Active rizatriptan (MAXALT) 10 mg tabletIndicatio ns:Migraine Take 1 tablet (10 mg total) by mouth once as needed for migraine May repeat in 2 hours if unresolved. Do not exceed 30 mg in 24 hours. 9 tablet 3 09/18/19 25 Active triamcinolone (KENALOG) 0.5 % ointmentIndicat ions:Eczema, unspecified type Apply topically 2 (two) times a day 30 g 09/22/19 25 Active cyclobenzaprine (FLEXERIL) 10 mg tablet Take 1 tablet (10 mg total) by mouth 2 (two) times a day as needed for muscle spasms 20 tablet 02/22/20 25 Active ibuprofen (ADVIL,MOTRIN) 800 mg tabletIndicatio ns:Pain Take 1 tablet (800 mg total) by mouth every 6 (six) hours as needed for pain 90 tablet 03/07/20 25 Active hydrOXYzine (ATARAX) 25 mg tablet Take 1 tablet (25 mg total) by mouth every 6 (six) hours 12 tablet 01/14/20 24 025 Discontinued LORazepam (Ativan) 1 mg tablet Take 1 tablet (1 mg total) by mouth 3 (three) times a day as needed for anxiety for up to 15 doses 15 tablet 01/14/20 24 025 Discontinued gabapentin (NEURONTIN) 100 mg capsule Take 1 capsule (100 mg total) by mouth 3 (three) times a day For post-herpetic neuralgia: Take 1 tablet on day 1, Then take 2 tablets on day 2, Then take 3 tablets on day 3 and every day after that as instructed by your doctor. 90 capsule 11 03/07/20 24 025 Discontinued meloxicam (MOBIC) 7.5 mg tablet Take 1 tablet (7.5 mg total) by mouth daily as needed for pain 30 tablet 03/07/20 24 025 Discontinued cyclobenzaprine (FLEXERIL) 10 mg tabletIndicatio ns:Right torticollis Take 1 tablet (10 mg total) by mouth 2 (two) times a day as needed for muscle spasms 20 tablet 03/14/20 24 025 Discontinued cyclobenzaprine (FLEXERIL) 5 mg tabletIndicatio ns:Neck pain Take 1 tablet (5 mg total) by mouth 3 (three) times a day as needed for muscle spasms 30 tablet 06/11/19 25 025 Discontinued tamsulosin (FLOMAX) 0.4 mg extended release capsule TAKE 1 CAPSULE BY MOUTH EVERY DAY 90 capsule 1 07/28/19 25 025 Discontinued ofloxacin (FLOXIN) 0.3 % otic solutionIndicat ions:Traumatic rupture of right ear drum, initial encounter Administer 5 drops into each ear 2 (two) times a day 10 mL 10/25/19 25 025 Discontinued Active Problems Problem Noted Date Diagnosed Date Eczema 02/18/2025 Assessment & Plan (02/18/2025 3:54 PM PET SITTER): -Chronic, controlled -Currently utilizes triamcinolone 0.5% ointment as needed -Patient endorses adequate relief with current regimen -Patient denies any severe eczema flares recently -Encouraged patient to reach out to office if he begins to experience significant flare -Continue current treatment plan Overweight with body mass in dex (BMI) of 28 to 28.9 in adult 02/18/2025 Assessment & Plan (02/18/2025 10:32 AM PET SITTER): Wt Readings from Last 3 Encounters: 02/18/25 95.7 kg (211 lb) 01/31/25 96 kg (211 lb 11.2 oz) 01/24/25 95.7 kg (211 lb) Body mass index is 28.62 kg/m . -Stable, at goal of <30 bmi -Discussed recommendations for exercise at least 30 minutes moderate to vigorous exercise as tolerated most days of the week. (minimum 150 minutes weekly) -Discussed importance of well-balanced diet Gastroesophageal reflux disease without esophagi tis 02/18/2025 Assessment & Plan (02/18/2025 10:32 AM PET SITTER): -chronic, controlled -patient currently takes OTC medication as needed -patient encouraged to continue avoiding trigger foods and remaining upright at least 30 minutes after eating or drinking -continue current treatment plan Chest pain 08/05/2024 Hepatic steatosis 06/24/2024 Enlarged prostate 06/24/2024 Renal calculi 06/24/2024 Kidney lesion 06/24/2024 Assessment & Plan (06/24/2024 1:34 PM CDT): Likely cyst Referral to urology for eval Paresthesia of skin 05/29/2024 Low HDL (under 40) 05/23/2023 Assessment & Plan (02/18/2025 10:32 AM PET SITTER): -chronic, controlled -currently controlled through diet and activity -Discussed importance of well-balanced diet -will recheck lab values -continue current treatment plan Orders: Lipid panel; Future Assessment & Plan (06/24/2024 1:26 PM CDT): Lab Results Component Value Date CHOL 157 05/23/2023 CHOL 162 05/24/2022 Lab Results Component Value Date HDL 35 (L) 05/23/2023 HDL 33 (L) 05/24/2022 Lab Results Component Value Date LDLCALC 101 05/23/2023 LDLCALC 90 05/24/2022 Lab Results Component Value Date TRIG 103 05/23/2023 TRIG 194 (H) 05/24/2022 No results found for: POCCHDLR No results found for: POCNONHDL No results found for: POCCHLPL At goal Continue current regimen Assessment & Plan (03/12/2024 7:21 AM PET SITTER): Lab Results Component Value Date CHOL 157 05/23/2023 CHOL 162 05/24/2022 Lab Results Component Value Date HDL 35 (L) 05/23/2023 HDL 33 (L) 05/24/2022 Lab Results Component Value Date LDLCALC 101 05/23/2023 LDLCALC 90 05/24/2022 Lab Results Component Value Date TRIG 103 05/23/2023 TRIG 194 (H) 05/24/2022 No results found for: POCCHDLR No results found for: POCNONHDL No results found for: POCCHLPL At goal Continue current regimen Assessment & Plan (12/11/2023 8:54 AM CDT): Lab Results Component Value Date CHOL 157 05/23/2023 CHOL 162 05/24/2022 Lab Results Component Value Date HDL 35 (L) 05/23/2023 HDL 33 (L) 05/24/2022 Lab Results Component Value Date LDLCALC 101 05/23/2023 LDLCALC 90 05/24/2022 Lab Results Component Value Date TRIG 103 05/23/2023 TRIG 194 (H) 05/24/2022 No results found for: POCCHDLR No results found for: POCNONHDL No results found for: POCCHLPL At goal Continue current regimen Assessment & Plan (11/07/2023 9:30 AM CDT): Lab Results Component Value Date CHOL 157 05/23/2023 CHOL 162 05/24/2022 Lab Results Component Value Date HDL 35 (L) 05/23/2023 HDL 33 (L) 05/24/2022 Lab Results Component Value Date LDLCALC 101 05/23/2023 LDLCALC 90 05/24/2022 Lab Results Component Value Date TRIG 103 05/23/2023 TRIG 194 (H) 05/24/2022 No results found for: POCCHDLR No results found for: POCNONHDL No results found for: POCCHLPL At goal Continue current regimen Assessment & Plan (10/23/2023 10:22 AM CDT): Lab Results Component Value Date CHOL 157 05/23/2023 CHOL 162 05/24/2022 Lab Results Component Value Date HDL 35 (L) 05/23/2023 HDL 33 (L) 05/24/2022 Lab Results Component Value Date LDLCALC 101 05/23/2023 LDLCALC 90 05/24/2022 Lab Results Component Value Date TRIG 103 05/23/2023 TRIG 194 (H) 05/24/2022 No results found for: POCCHDLR No results found for: POCNONHDL No results found for: POCCHLPL At goal Continue current regimen Assessment & Plan (07/03/2023 2:18 PM CDT): Lab Results Component Value Date CHOL 157 05/23/2023 CHOL 162 05/24/2022 Lab Results Component Value Date HDL 35 (L) 05/23/2023 HDL 33 (L) 05/24/2022 Lab Results Component Value Date LDLCALC 101 05/23/2023 LDLCALC 90 05/24/2022 Lab Results Component Value Date TRIG 103 05/23/2023 TRIG 194 (H) 05/24/2022 No results found for: POCCHDLR No results found for: POCNONHDL No results found for: POCCHLPL At goal Continue current regimen Preventative health care 11/08/2022 Assessment & Plan (02/18/2025 10:32 AM PET SITTER): - New or chronic worsening conditions: no significant acute issues on this visit - Mental health: no significant psychiatric/mental health conditions affecting his day to day functioning - Dental health: Up to date with regular dental care and cleaning. Discussed importance of regular tooth brushing, flossing, and dental visits. - Nutrition: Stressed importance of moderation in sodium/caffeine intake, saturated fat and cholesterol, caloric balance, sufficient intake of fresh fruits, vegetables - Exercise: Stressed the importance of regular exercise - Immunizations: Age and sex appropriate immunizations reviewed and offered Orders: CBC with auto differential; Future Comprehensive metabolic panel; Future Thyroid Function [place]; Future Lipid panel; Future Assessment & Plan (10/23/2023 10:16 AM CDT): Discussed lifestyle modifications, diet and exercise. Routine blood work ordered/reviewed today. Yearly vision and dental examinations. Assessment & Plan (11/08/2022 9:49 AM CDT): Discussed lifestyle modifications, diet and exercise. Routine blood work ordered/reviewed today. Yearly vision and dental examinations. Migraine with aura and witho ut status migrainosus, not intractable 11/08/2022 Assessment & Plan (02/18/2025 10:32 AM PET SITTER): -chronic, controlled -patient currently takes qulipta 60 mg daily, rizatriptan 10 mg PRN -patient follows with Neurology -patient reports having migraine headache frequently -encourage patient to use p.r.n. migraine medication if needs so -continue current treatment plan Assessment & Plan (03/12/2024 7:21 AM PET SITTER): Continue followu p with neuro Continue rizatriptan 5 mg qhs prn Was started on qulipta 30 mg every day , unsure if he has started yet Assessment & Plan (12/11/2023 8:54 AM CDT): Still having migraines States that he was taking rizatriptan daily Discussed appropriate measures of takign the medication Dont think he is taking the topiramate Refill now for 25 mg bid Assessment & Plan (11/07/2023 9:29 AM CDT): Still having migraines States that he was taking rizatriptan daily Discussed appropriate measures of takign the medication Dont think he is taking the topiramate Refill now for 25 mg bid Assessment & Plan (10/23/2023 10:21 AM CDT): Worsening migraines - more frequent Had to leave work due to migraines Will refer to neurology for eval - has not been called States taht he is only getting migraines once or twice a month Sees black spots and then vision goes Most recent pain was aroudn his eyes, and was sharp and lasts about 1 hour Start topiramate 25 mg bid - was sent previously but pt never picked it up Side effects to sumatriptan Change to rizatriptan pending neuro eval Assessment & Plan (05/23/2023 9:09 AM PET SITTER): Worsening migraines Will refer to neurology for eval States taht he is only getting migraines once or twice a month Sees black spots and then vision goes Start Topamax 25 mg bid Resolved Problems Problem Noted Date Diagnosed Date Resolved Date Bladder wall thickening 06/24/2024 11/2 Encounters Date Type Department Care Team Description 03/10/2025 12:45 PM PET SITTER Office Visit [facility] Care at [address] [phone] Roro Murphy PA Epigastric pain (Primary Dx) 03/07/2025 9:45 AM PET SITTER Office Visit [facility] Care at [address] [place] [phone] Kitty Silva NP Pain (Primary Dx) 03/05/2025 5:00 PM PET SITTER Office Visit [facility] Care at [place] [address] [place] [phone] Araceli Hatch NP Renal colic (Primary Dx) 03/05/2025 Results Follow-Up [facility] Primary Care at [address] [place] [phone] Starla Frazier NP Hemoglobin A1c, Hepatitis B Surface Antigen Blood, Hepatitis B surface antibody (immune status) Blood, Additional followed-up results: 8 03/04/2025 10:15 AM PET SITTER Lab [address] Encounter for screening examination for impaired glucose regulation and diabetes mellitus; Need for hepatitis B screening test; Need for hepatitis C screening test; Preventative health care; Low HDL (under 40); Screening for thyroid disorder 02/26/2025 11:45 AM PET SITTER Office Visit [facility] Care at [address] [phone] Jay Woodward NP Acute diarrhea (Primary Dx) 02/21/2025 8:35 AM PET SITTER - 02/21/2025 8:55 AM PET SITTER Emergency [facility] Emergency Department [address] [place] [address] Avel Scherer MD Acute left-sided low back pain without sciatica (Primary Dx); Kidney stones Discharge Disposition: Discharge to home or self care 02/18/2025 10:00 AM PET SITTER Office Visit [facility] Primary Care at [place] [address] [facility] [address] [place] [phone] Starla Frazier NP Establishing care with new doctor, encounter for (Primary Dx); Preventative health care; Migraine with aura and without status migrainosus, not intractable; Low HDL (under 40); Gastroesophageal reflux disease without esophagitis; Eczema, unspecified type; Overweight with body mass index (BMI) of 28 to 28.9 in adult; Screening for thyroid disorder; Encounter for screening examination for impaired glucose regulation and diabetes mellitus; Need for hepatitis C screening test; Need for hepatitis B screening test 01/31/2025 10:15 AM PET SITTER Office Visit [facility] at [address] [phone] Roro Murphy PA Nasopharyngitis (Primary Dx) 01/24/2025 10:15 AM CDT Office Visit [facility] at [address] [phone] Rosemarie Garibay NP Intractable chronic migraine with aura with status migrainosus (Primary Dx) 01/16/2025 10:15 AM CDT Office Visit [facility] Care at [address] [place] [phone] Nathalie Blair NP Chronic migraine with aura and with status migrainosus, not intractable (Primary Dx) 12/30/2024 11:00 AM CDT Office Visit [facility] Care at [address] [phone] Jay Woodward NP Abdominal pain of multiple sites (Primary Dx); Frequent urination; Left lower quadrant abdominal tenderness without rebound tenderness; Other constipation; Dizziness; Visual changes 12/24/2024 Telephone [facility] [address] [place] [address] [place] [phone] María Wong NP work letter 12/21/2024 Telephone [facility] [address] [place] [phone] María Wong NP Off work note (Migraine headache) 12/20/2024 10:45 AM CDT Office Visit [facility] Care at [address] [phone] Rosemarie Garibay NP Intractable chronic migraine without aura and with status migrainosus (Primary Dx) 12/09/2024 11:45 AM CDT Office Visit [facility] Care at [address] [phone] Rosemarie Garibay NP Intractable chronic migraine with aura and without status migrainosus (Primary Dx) from Last 3 Months Immunizations Immunization Administration Dates Next Due Influenza, Unspecified 02/18/2025(Deferr ed: Patient Refused),06/29/2024(Deferred: Patient Refused),06/24/2024(Deferred: Patient Refused),03/12/2024(Deferred: Patient Refused),12/11/2023(Deferred: Patient Refused),11/07/2023(Deferred: Patient Refused),06/28/2023(Deferred: Patient Refused),06/28/2023(Deferred: Patient Refused),05/23/2023(Deferred: Patient Refused),03/01/2022(Deferred: Patient Refused),02/17/2021(Deferred: Patient Refused) Surgical History Surgery Date Site/Laterality Comments NO PAST SURGERIES Medical History Medical History Date Comments Migraine with aura GERD (gastroesophageal reflux disease) Family History Medical History Relation Name Comments Prostate cancer Maternal Grandfather Breast cancer Mother Relation Name Status Comments Father Alive Maternal Grandfather Mother Alive Social History Tobacco Use Types Packs/Day Years Used Date Smoking Tobacco: Former Vaping Smokeless Tobacco: Never Tobacco Cessation:Counseling Given: Not Answered Alcohol Use Standard Drinks/Week Comments Never 0 [...] on file Sexual Orientation Not on file Last Filed Vital Signs Vital Sign Reading Time Taken Comments Blood Pressure 120/77 03/10/2025 12:32 PM PET SITTER Pulse 78 03/10/2025 12:32 PM PET SITTER Temperature 36.8 C (98.3 F) 03/10/2025 12:32 PM PET SITTER Respiratory Rate 20 03/10/2025 12:32 PM PET SITTER Oxygen Saturation 98% 03/10/2025 12:32 PM PET SITTER Inhaled Oxygen Concentration - - Weight 96.2 kg (212 lb) 03/10/2025 12:32 PM PET SITTER Height 182.9 cm (6') 03/10/2025 12:32 PM PET SITTER Body Mass Index 28.75 03/10/2025 12:32 PM PET SITTER Plan of Treatment Health Maintenance Due Date Last Done Comments DTaP/Tdap/Td Vaccine (1 - Tdap) 09/08/1991 Pneumococcal vaccine <65 (1 of 2 - PCV) 09/08/1999 HPV Vaccines (1 - 3-dose SCDM series) 09/08/2007 Influenza Vaccine (#1) 2025 Postp oned from 11/30/2024 (Patient declined, but will receive in the future) Covid-19 Vaccine ( season) 2026 04/25/2021, 09/14/2020, 08/17/2020 Postponed from 11/30/2024 (Patient declined, but will receive in the future) Depression Screening 02/18/2026 02/18/2025, 07/01/2024, 06/24/2024, Additional history exists Regular Well Visit/Exam 18-64 02/18/2026 02/18/2025, 02/18/2025, 10/23/2023, Additional history exists Hepatitis B Screening Completed 03/04/2025 Hepatitis C Screening Completed 03/04/2025 Varicella Vaccines Discontinued Procedures Procedure Name Priority Date/Time Associated Diagnosis Comments EGFR Routine 03/04/2025 10:12 AM PET SITTER Preventative health care DIFFERENTIAL AUTO Routine 03/04/2025 10: 12 AM PET SITTER Preventative health care CBC WITH AUTO DIFFERENTIAL Routine 03/04/2025 10:12 AM PET SITTER Preventative health care COMPREHENSIVE METABOLIC PANEL Routine 03/04/2025 10:12 AM PET SITTER Preventative health care THYROID FUNCTION CASCADE Routine 03/04/2025 10:12 AM PET SITTER Preventative health care Screening for thyroid disorder LIPID PANEL Routine 03/04/2025 10:12 AM PET SITTER Preventative health care Low HDL (under 40) HEMOGLOBIN A1C Routine 03/04/2025 10:12 AM PET SITTER Encounter for screening examination for impaired glucose regulation and diabetes mellitus HEPATITIS C ANTIBODY Routine 03/04/2025 10:12 AM PET SITTER Need for hepatitis C screening test HEPATITIS B CORE ANTIBODY, TOTAL Routine 03/04/2025 10:12 AM PET SITTER Need for hepatitis B screening test HEPATITIS B SURFACE ANTIBODY (IMMUNE STATUS) Routine 03/04/2025 10:12 AM PET SITTER Need for hepatitis B screening test HEPATITIS B SURFACE ANTIGEN Routine 03/04/2025 10:12 AM PET SITTER Need for hepatitis B screening test CT KUB STONE WO CONTRAST ED 02/21/2025 7:53 AM PET SITTER URINALYSIS AND REFLEX TO MICROSCOPIC AND CULTURE STAT 02/21/2025 7:42 AM PET SITTER EGFR STAT 02/21/2025 7:16 AM PET SITTER DIFFERENTIAL AUTO STAT 02/21/2025 7:1 6 AM PET SITTER LIPASE STAT 02/21/2025 7:16 AM PET SITTER COMPREHENSIVE METABOLIC PANEL STAT 02/21/2025 7:16 AM PET SITTER CBC WITH AUTO DIFFERENTIAL STAT 02/21/2025 7:16 AM PET SITTER POCT RAPID STREP Routine 01/31/2025 10:1 6 AM PET SITTER Nasopharyngitis POCT URINALYSIS DIPSTICK Routine 12/30/2024 10:56 AM CDT Frequent urination Abdominal pain of multiple sites Left lower quadrant abdominal tenderness without rebound tenderness from Last 3 Months Results * eGFR (03/04/2025 10:12 AM PET SITTER) eGFR >90 >=60 mL/min/1. 73 m2 Comment: Interpretive Data Reference Interval Normal >/= 90 mL/min/1.73m2 Mildly decreased* 60 - 89 mL/min/1.73m2 Mildly to moderately decreased 45 - 59 mL/min/1.73m2 Moderately to severely decreased 30 - 44 mL/min/1.73m2 Severely decreased 15 - 29 mL/min/1.73m2 Kidney Failure < 15 mL/min/1.73m2 *Relative to young adult level Estimated glomerular filtration rate is determined by the 2020 CKD-EPI equation recommended by the National Kidney Foundation (A Unifying Approach to GFR Estimation: Recommendations of the NKF-ASK Task Force on Reassessing the Inclusion of Race in Diagnosing Kidney Disease, JASN 2020). The CKD-EPI equation should not be used for patients with unstable renal function and has not been validated in children and those over 70. Current interpretive data was last reviewed 2021. Blood 03/04/2025 10:1 2 AM PET SITTER 03/04/2025 1:28 PM PET SITTER Starla Frazier NP LAB BLOOD ORDERABLES nal Result [facility] ([place]) [address] [facility] Department [place] [address] * Differential, auto (03/04/2025 10:12 AM PET SITTER) Neutrophil abs 4.86 1.50 - 6.50 K/cumm Imm gran abs 0.03 0.00 - 0.10 K/cumm [facility] ([place]) Lymphocyte abs 2.02 0.80 - 3.30 K/cumm [facility] ([place]) Monocyte abs 0.64 0.20 - 0.80 K/cumm [facility] ([place]) Eosinophil abs 0.25 0.00 - 0.50 K/cumm [facility] ([place]) Basophil abs 0.06 0.00 - 0.10 K/cumm [facility] ([place]) Neutrophil pct 61.8 % [facility] ([place]) Comment: Interpretive Data Percent cell count reference ranges are not reported, since discordance with absolute values may lead to misinterpretation of CBC data. Current Interpretive Data was last revised on 2017. Imm gran pct 0.4 % [facility] ([place]) Comment: Interpretive Data Percent cell count reference ranges are not reported, since discordance with absolute values may lead to misinterpretation of CBC data. Current Interpretive Data was last revised on 2017. Lymphocyte pct 25.7 % [facility] ([place]) Comment: Interpretive Data Percent cell count reference ranges are not reported, since discordance with absolute values may lead to misinterpretation of CBC data. Current Interpretive Data was last revised on 2017. Monocyte pct 8.1 % [facility] ([place]) Comment: Interpretive Data Percent cell count reference ranges are not reported, since discordance with absolute values may lead to misinterpretation of CBC data. Current Interpretive Data was last revised on 2017. Eosinophil pct 3.2 % [facility] ([place]) Comment: Interpretive Data Percent cell count reference ranges are not reported, since discordance with absolute values may lead to misinterpretation of CBC data. Current Interpretive Data was last revised on 2017. Basophil pct 0.8 % [facility] ([place]) Comment: Interpretive Data Percent cell count reference ranges are not reported, since discordance with absolute values may lead to misinterpretation of CBC data. Current Interpretive Data was last revised on 2017. Blood 03/04/2025 10:1 2 AM PET SITTER 03/04/2025 1:28 PM PET SITTER Starla Frazier NP LAB BLOOD ORDERABLES Fi nal Result Performing Organization Address City/[facility]/ZIP Co de Phone Number [facility] ([place]) 1 [facility] [place] [address] * Thyroid Function [place] (03/04/2025 10:12 AM PET SITTER) Pathologist [facility] TSH 1.30 0.30 - 4.20 mcIUnit/mL Blood 03/04/2025 10:1 2 AM PET SITTER 03/04/2025 1:28 PM PET SITTER Starla Frazier [employer] LAB BLOOD ORDERABLES Fi nal Result Performing Organization Address City/[facility]/ZIP Co de Phone Number [facility] ([place]) 1 [facility] [place] [place] [address] * CBC with auto differential (03/04/2025 10:12 AM PET SITTER) WBC 7.86 3.80 - 9.90 K/cumm Hgb 14.7 13.0 - 17.5 g/dL [facility] ([place]) Hct 45.1 38.9 - 50.3 % [facility] ([place]) Plt 332 150 - 400 K/cumm [facility] ([place]) MPV 9.6 9.1 - 12.3 fL [facility] ([place]) RBC 5.16 4.30 - 5.80 M/cumm [facility] ([place]) MCV 87.4 81.3 - 96.4 fL [facility] ([place]) MCH 28.5 27.1 - 33.3 pg [facility] ([place]) MCHC 32.6 32.3 - 35.7 g/dL [facility] ([place]) RDW CV 12.8 11.1 - 14.9 % [facility] ([place]) RDW SD 40.5 35.7 - 48.1 fL [facility] ([place]) NRBC abs 0.00 0.00 - 0.01 K/cumm [facility] ([place]) Blood 03/04/2025 10:1 2 AM PET SITTER 03/04/2025 1:28 PM PET SITTER Starla Frazier NP LAB BLOOD ORDERABLES [facility] Result [facility] ([place]) [address] [facility] Department of Laboratories [place], [place] [id number] * Hepatitis C antibody Blood (03/04/2025 10:12 AM PET SITTER) Hep C Ab Nonreactive Nonreactive Comment: Interpretive Data Nonreactive: Antibodies to HCV not detected. Does NOT exclude the possibility of recent exposure to HCV. Equivocal: Equivocal for HCV antibodies. Supplemental molecular testing will be automatically performed to determine infection status in accordance with current CDC screening recommendations. Reactive: Positive for HCV antibodies. This may represent current or past HCV infection. Supplemental molecular testing will be automatically performed to determine current infection status in accordance with current CDC screening recommendations. Interpretive data was last revised on 2019. Testing performed by: [facility], [address] [place] [address], [place]., [id number] Blood 03/04/2025 10:1 2 AM PET SITTER 03/04/2025 4:18 PM PET SITTER Starla Frazier NP LAB MICROBIOLOGY - GENE RAL ORDERABLES Final Result TOMA RICKETTS (LEGGETT) 1 [facility] [place] [place] [address] * Hepatitis B core antibody, total Blood (03/04/2025 10:12 AM PET SITTER) Hep B core IgG/IgM Nonreactive Nonreactive Comment:Testing performed by : [facility], [address] [place] [address], [id number] Blood 03/04/2025 10:1 2 AM PET SITTER 03/04/2025 4:23 PM PET SITTER Starla Frazier NP LAB MICROBIOLOGY - GENE RAL ORDERABLES Final Result Performing Organization Address [facility] Co de Phone Number TOMA RICKETTS (LEGGETT) 1 [place] [address] * Hepatitis B surface antibody (immune status) Blood (03/04/2025 10:12 AM PET SITTER) HBsAb (immune status) Nonreactive Comment: Interpretive Data Nonreactive: This result is consistent with a lack of immunity to Hepatitis B Virus when used in the setting of routine screening. Equivocal: The immune status of the individual should be further assessed, if appropriate, after consideration of clinical status, risk factors, and additional diagnostic information. Reactive: This result is consistent with immunity to Hepatitis B Virus when used in the setting of routine screening. Current interpretive data was last revised on 19. Testing performed by: [facility], [address] [place] [address]., [id number] Blood 03/04/2025 10:1 2 AM PET SITTER 03/04/2025 4:18 PM PET SITTER Starla Frazier NP LAB MICROBIOLOGY - GENE RAL ORDERABLES Final Result TOMA RICKETTS (LEGGETT) 1 [facility] [place] [address] * Hepatitis B Surface Antigen Blood (03/04/2025 10:12 AM PET SITTER) HepBsAg Nonreactive Nonreactive Comment:Testing performed by : [facility], [address] [place] [address], [place]., [address] Blood 03/04/2025 10:1 2 AM PET SITTER 03/04/2025 4:18 PM PET SITTER Starla Frazier NP LAB MICROBIOLOGY - GENE RAL ORDERABLES Final Result Performing Organization Address [facility] de Phone Number TOMA RICKETTS (LEGGETT) 1 [facility] [place] [address] * Hemoglobin A1c (03/04/2025 10:12 AM PET SITTER) [facility] Hgb A1C 5.3 4.0 - 5.6 % Estimated Average Glucose 105 mg/dL [facility] ([place]) Comment: The ADA recommends reporting an estimated Average Glucose (eAG) with all Hemoglobin A1c results using the equation derived from a study of 507 normal and diabetic adults. Minority populations were underrepresented and children were not included. (Diabetes Care 31:4547-2624, 2008). The eAG is not equivalent to a fasting glucose. Blood 03/04/2025 10:1 2 AM PET SITTER 03/04/2025 1:28 PM PET SITTER Starla Frazier NP LAB BLOOD ORDERABLES Fi nal Result Performing Organization Address [facility] Co de Phone Number TOMA RICKETTS (LEGGETT) 1 [facility] [employer] [place] [address] * (ABNORMAL) Lipid panel (03/04/2025 10:12 AM PET SITTER) [facility] Cholesterol 184 30 - 199 mg/dL Comment: Interpretive Data Ages < or = 19 years Acceptable: <170 mg/dL Borderline high: 170-199 mg/dL High: >or= 200 mg/dL Ages > or = 20 years Desirable: <200 mg/dL Borderline high: 200-239 mg/dL High: >or= 240 mg/dL Literature References: 1. Expert Panel on Integrated Guidelines for Cardiovascular Health and Risk Reduction in Children and Adolescents. Pediatrics 2011;128:S213 2. NCEP Expert Panel. Circulation 2004;110:227 Current Interpretive Data was last revised on 2017. Triglycerides 121 <=149 mg/dL TOMA RICKETTS (TARIK) Comment: Interpretive Data Ages < or = 9 years Acceptable: <75 mg/dL Borderline high: 75-99 mg/dL High: >or= 100 mg/dL Ages 10 to 20 years Acceptable: <90 mg/dL Borderline high: 90-129 mg/dL High: >or= 130 mg/dL Ages > or = 20 years Desirable: <150 mg/dL Borderline high: 150-199 mg/dL High: 200-499 mg/dL Very high: >or= 499 mg/dL Literature References: 1. Expert Panel on Integrated Guidelines for Cardiovascular Health and Risk Reduction in Children and Adolescents. Pediatrics 2011;128:S213 2. NCEP Expert Panel. Circulation 2004;110:227 Current Interpretive Data was last revised on 2017. HDL 37(L) >=40 mg/dL TOMA Pelayo (TARIK) Comment: Interpretive Data Ages < or = 19 years Acceptable: >45 mg/dL Borderline low: 40-45 mg/dL Low: <40 mg/dL Ages > or = 20 years Desirable: >or= 60 mg/dL Low: <40 mg/dL Literature References: 1. Expert Panel on Integrated Guidelines for Cardiovascular Health and Risk Reduction in Children and Adolescents. Pediatrics 2011;128:S213 2. NCEP Expert Panel. Circulation 2004;110:227 Current Interpretive Data was last revised on 2017. LDL, calculated 125 <=129 mg/dL TOMA RICKETTS (TARIK) Comment: Interpretive Data Ages < or = 19 years Acceptable: <110 mg/dL Borderline high: 110-129 mg/dL High: >or= 130 mg/dL Ages > or = 20 years Optimal: <100 mg/dL Near optimal: 100-129 mg/dL Borderline high: 130-159 mg/dL High: >160 mg/dL Calculated using the Thomson LDL-C estimating equation. This equation was implemented on 2023. Prior to this date LDL-C was estimated using the Friedewald equation. Literature References: 1. Expert Panel on Integrated Guidelines for Cardiovascular Health and Risk Reduction in Children and Adolescents. Pediatrics 2011;128:S213 2. NCEP Expert Panel. Circulation 2004;110:227 3. Berto M et al. GARDENIA Cardiol. 2019July 30;5(5):540-548. doi: 10.1001/jamacardio.2020.0013 Current Interpretive Data was last revised on 2023. Non-HDL Cholesterol 147 mg/dL [facility] (TARIK) Comment: Interpretive Data Ages < or = 19 years Acceptable: <120 mg/dL Borderline high: 120-144 mg/dL High: >145 mg/dL Ages > or = 20 years When triglycerides are >200 mg/dL, Non-HDL cholesterol is a secondary target of therapy with treatment goals that are 30 mg/dL greater than the LDL cholesterol target. Literature References: 1. Expert Panel on Integrated Guidelines for Cardiovascular Health and Risk Reduction in Children and Adolescents. Pediatrics 2011;128:S213 2. NCEP Expert Panel. Circulation 2004;110:227 Current Interpretive Data was last revised on 2017. Chol/HDL ratio 5 [facility] (TARIK) Blood 03/04/2025 10:1 2 AM PET SITTER 03/04/2025 1:28 PM PET SITTER Narrative [facility] (TARIK) - 03/04/2025 1:57 PM PET SITTER Has the patient been fasting for 8 hours or more?->Yes us Starla Frazier NP LAB BLOOD ORDERABLES [facility]ly [facility], [facility] Result [facility] (TARIK) [address] [facility] Department [place] [address] * Comprehensive metabolic panel (03/04/2025 10:12 AM PET SITTER) Sodium 140 135 - 145 mmol/L Potassium, pl 4.0 3.3 - 4.9 mmol/L [facility] (TARIK) Chloride 101 97 - 110 mmol/L [facility] ([place]) CO2 27 22 - 32 mmol/L [facility] ([place]) Anion gap 12 2 - 15 mmol/L [facility] ([place]) BUN 11 6 - 25 mg/dL [facility] ([place]) Creatinine 1.04 0.80 - 1.30 mg/dL [facility] ([place]) Glucose 90 70 - 199 mg/dL [facility] (TARIK) Comment: Interpretive Data Fasting glucose >/= 126 mg/dl is diagnostic for diabetes. Fasting is defined as no caloric intake for at least 8 hours. Fasting glucose between 100 mg/dl to 125 mg/dl is diagnostic of prediabetes. In a patient with classic symptoms of hyperglycemia or hyperglycemic crisis, a random glucose >/= 200 mg/dl is diagnostic for diabetes. In the absence of unequivocal hyperglycemia, results should be confirmed by repeat testing. The classification and Diagnosis of Diabetes Diabetes Care 202; 46: S19-S40. Current interpretive data was last revised 2022. Calcium 10.2 8.5 - 10.3 mg/dL [facility] (TARIK) Bilirubin, total 0.5 0.1 - 1.2 mg/dL [facility] ([place]) Protein, pl 7.2 6.5 - 8.5 g/dL [facility] ([place]) Albumin 4.7 3.5 - 5.0 g/dL [facility] ([place]) Alk phos 79 40 - 130 Units/L [facility] ([place]) ALT 19 7 - 55 Units/L [facility] ([place]) AST 27 10 - 50 Units/L [facility] (TARIK) Blood 03/04/2025 10:1 2 AM PET SITTER 03/04/2025 1:28 PM PET SITTER us Starla Frazier NP LAB BLOOD ORDERABLES Fi nal Result [facility] ([place]) [address] [facility] Department [place] [address] * CT KUB Stone WO Contrast (02/21/2025 7:53 AM PET SITTER) Anatomical Region Laterality Modality Abdomen N/A Computed Tomogra phy 02/21/2025 8:19 AM PET SITTER Impressions 02/21/2025 8:19 AM PET SITTER 1. Nonobstructing bilateral renal calculi. 2. Decompressed urinary bladder with diffuse wall thickening. Please correlate with urinalysis if this concern for cystitis. 3. Left renal indeterminate lesion as noted on the CT abdomen and pelvis dated 06/23/2024. Recommend contrast enhanced renal protocol MRI is not obtained in the interval. 4. Other findings as above. Electronically signed by: Ham Obrien D.O. Narrative 02/21/2025 8:19 AM PET SITTER EXAM DESCRIPTION:CT KUB STONE WO CONTRAST REASON FOR STUDY:Abdominal/flank pain, stone suspected TECHNIQUE: CT scan of the abdomen and pelvis performed without intravenous and without oral contrast using helical scanning technique. Reconstructed coronal and sagittal MPR images reviewed. All images stored on PACS. Automated exposure control was used as a dose optimization technique for this examination. COMPARISON:CT abdomen and pelvis dated 06/23/2024 and 12/18/2022. REFERENCE: Per ACR white paper recommendations, unless otherwise specified no follow-up imaging is recommended for incidental renal and adrenal lesions per consensus recommendations based on imaging criteria. Further lab evaluation could be pursued based on clinical findings. FINDINGS: The sensitivity for detection of visceral lesions is diminished without the use of intravenous contrast. LOWER CHEST: There is no focal pneumonic consolidation. LIVER: Grossly homogeneous unenhanced CT appearance. GALLBLADDER: Subtle increased density could reflect sludge and/or tiny gallstones. SPLEEN: No calcified gallstone. Rounded nodule at the splenic hilum in keeping with a splenule. PANCREAS: Grossly homogeneous unenhanced CT appearance. No adjacent fluid collection. ADRENALS: Within normal limits. KIDNEYS/URINARY TRACT: The right renal nonobstructing calculi measuring up to 0.4 cm. No evidence for right ureteral calculus or obstructive uropathy. Left renal nonobstructing calculi measuring up to 0.2 cm. No evidence for left ureteral calculus or obstructive uropathy. Left renal lateral cortex partially exophytic 3.1 cm lesion with average Hounsfield greater than simple fluid does not meet criteria for simple fluid. The urinary bladder is underdistended with diffuse wall thickening. GI: Evaluation is limited without intravenous and oral contrast. Bowel pathology including wall thickening and inflammation could be obscured. Portion of the stomach, small bowel and large bowel are under distended. There is a air-filled nondilated appendix (series 2, image [id number]). No bowel obstruction or pericolonic inflammatory changes. PERITONEUM: No significant free fluid in the abdomen or intraperitoneal free air. Scattered nonspecific mesenteric root lymph nodes. RETROPERITONEUM: No retroperitoneal lymphadenopathy. REPRODUCTIVE: Coarse calcifications in the prostate gland. VASCULATURE: Abdominal aorta is nonaneurysmal. MUSCULOSKELETAL: Fat-containing umbilical hernia. Levoconvex lumbar curvature. Lumbar vertebral body heights are maintained. OTHER: A few scattered nonspecific inguinal lymph nodes on both sides. Procedure Note Ham Obrien, DO - 02/21/2025 EXAM DESCRIPTION:CT KUB STONE WO CONTRAST REASON FOR STUDY:Abdominal/flank pain, stone suspected TECHNIQUE: CT scan of the abdomen and pelvis performed without intravenous and without oral contrast using helical scanning technique. Reconstructed coronal and sagittal MPR images reviewed. All images stored on PACS. Automated exposure control was used as a dose optimization technique for this examination. COMPARISON:CT abdomen and pelvis dated 06/23/2024 and 12/18/2022. REFERENCE: Per ACR white paper recommendations, unless otherwise specified no follow-up imaging is recommended for incidental renal and adrenal lesions per consensus recommendations based on imaging criteria. Further lab evaluation could be pursued based on clinical findings. FINDINGS: The sensitivity for detection of visceral lesions is diminished without the use of intravenous contrast. LOWER CHEST: There is no focal pneumonic consolidation. LIVER: Grossly homogeneous unenhanced CT appearance. GALLBLADDER: Subtle increased density could reflect sludge and/or tiny gallstones. SPLEEN: No calcified gallstone. Rounded nodule at the splenic hilum in keeping with a splenule. PANCREAS: Grossly homogeneous unenhanced CT appearance. No adjacent fluid collection. ADRENALS: Within normal limits. KIDNEYS/URINARY TRACT: The right renal nonobstructing calculi measuring up to 0.4 cm. No evidence for right ureteral calculus or obstructive uropathy. Left renal nonobstructing calculi measuring up to 0.2 cm. No evidence for left ureteral calculus or obstructive uropathy. Left renal lateral cortex partially exophytic 3.1 cm lesion with average Hounsfield greater than simple fluid does not meet criteria for simple fluid. The urinary bladder is underdistended with diffuse wall thickening. GI: Evaluation is limited without intravenous and oral contrast. Bowel pathology including wall thickening and inflammation could be obscured. Portion of the stomach, small bowel and large bowel are under distended. There is a air-filled nondilated appendix (series 2, image [id number]). No bowel obstruction or pericolonic inflammatory changes. PERITONEUM: No significant free fluid in the abdomen or intraperitoneal free air. Scattered nonspecific mesenteric root lymph nodes. RETROPERITONEUM: No retroperitoneal lymphadenopathy. REPRODUCTIVE: Coarse calcifications in the prostate gland. VASCULATURE: Abdominal aorta is nonaneurysmal. MUSCULOSKELETAL: Fat-containing umbilical hernia. Levoconvex lumbar curvature. Lumbar vertebral body heights are maintained. OTHER: A few scattered nonspecific inguinal lymph nodes on both sides. IMPRESSION: 1. Nonobstructing bilateral renal calculi. 2. Decompressed urinary bladder with diffuse wall thickening. Please correlate with urinalysis if this concern for cystitis. 3. Left renal indeterminate lesion as noted on the CT abdomen and pelvis dated 06/23/2024. Recommend contrast enhanced renal protocol MRI is not obtained in the interval. 4. Other findings as above. Electronically signed by: Ham Obrien D.O. us Avel Scherer MD IMG CT PROCEDURES Final Resu lt * Urinalysis reflex to microscopic and culture Urine (02/21/2025 7:42 AM PET SITTER) Color, ur Yellow Yellow Clarity, ur Clear Clear [facility] (TARIK) Specific gravity, ur 1.030 1.003 - 1.030 [facility] (TARIK) pH, urine 5.5 [facility] (TARIK) Comment: Interpretive Data U rine pH is affected by diet, medications, systemic acid-base disturbances, and renal tubular function. pH may affect urinary stone formation. For example, urine pH below 6.0 may help reduce the tendency for calcium phosphate stones and pH greater than 6.0 may reduce the tendency for uric acid stone formation. Source: [employer] Current Interpretive Data was last revised on 2017 Protein, ur ql Trace Negative [facility] (TARIK) Glucose, ur ql Negative Negative [facility] (TARIK) Ketones, ur Negative Negative [facility] (TARIK) Bilirubin, ur Negative Negative [facility] (TARIK) Blood, ur Negative Negative [facility] ([place]AR[place]) Urobilinogen, ur <2.0 <2.0 mg/dL [facility] (TARIK) Nitrite, ur Negative Negative [facility] (TARIK) Leukocyte esterase, ur Negative Negative [facility] (TARIK) UA reflex comment Reflex conditions for microscopic UA and culture not met. TOMA RICKETTS (LEGGETT) Urine 02/21/2025 7:42 AM PET SITTER 02/21/2025 7:46 AM PET SITTER Avel Scherer MD LAB MICROBIOLOGY - GENERAL O RDERABLES Final Result TOMA ErwinLEGGETT) [address] [facility] [employer] [place] [place] [address] * eGFR (02/21/2025 7:16 AM PET SITTER) eGFR >90 >=60 mL/min/1. 73 m2 Comment: Interpretive Data Reference Interval Normal >/= 90 mL/min/1.73m2 Mildly decreased* 60 - 89 mL/min/1.73m2 Mildly to moderately decreased 45 - 59 mL/min/1.73m2 Moderately to severely decreased 30 - 44 mL/min/1.73m2 Severely decreased 15 - 29 mL/min/1.73m2 Kidney Failure < 15 mL/min/1.73m2 *Relative to young adult level Estimated glomerular filtration rate is determined by the 2020 CKD-EPI equation recommended by the National Kidney Foundation (A Unifying Approach to GFR Estimation: Recommendations of the NKF-ASK Task Force on Reassessing the Inclusion of Race in Diagnosing Kidney Disease, JASN 2020). The CKD-EPI equation should not be used for patients with unstable renal function and has not been validated in children and those over 70. Current interpretive data was last reviewed 2021. Blood 02/21/2025 7:16 AM PET SITTER 02/21/2025 7:18 AM PET SITTER us Avel Scherer MD LAB BLOOD ORDERABLES Final R esult TOMA ErwinLEGGETT) [address] [facility] [place] [place] [address] * Differential, auto (02/21/2025 7:16 AM PET SITTER) Neutrophil abs 3.90 1.50 - 6.50 K/cumm Imm gran abs 0.03 0.00 - 0.10 K/cumm [facility] (TARIK) Lymphocyte abs 2.60 0.80 - 3.30 K/cumm [facility] ([place]IK) Monocyte abs 0.74 0.20 - 0.80 K/cumm [facility] ([place]) Eosinophil abs 0.35 0.00 - 0.50 K/cumm [facility] ([place]) Basophil abs 0.06 0.00 - 0.10 K/cumm [facility] (TARIK) Neutrophil pct 50.7 % [facility] (TARIK) Comment: Interpretive Data Percent cell count reference ranges are not reported, since discordance with absolute values may lead to misinterpretation of CBC data. Current Interpretive Data was last revised on 2017. Imm gran pct 0.4 % [facility] (TARIK) Comment: Interpretive Data Percent cell count reference ranges are not reported, since discordance with absolute values may lead to misinterpretation of CBC data. Current Interpretive Data was last revised on 2017. Lymphocyte pct 33.9 % [facility] (TARIK) Comment: Interpretive Data Percent cell count reference ranges are not reported, since discordance with absolute values may lead to misinterpretation of CBC data. Current Interpretive Data was last revised on 2017. Monocyte pct 9.6 % [facility] (TARIK) Comment: Interpretive Data Percent cell count reference ranges are not reported, since discordance with absolute values may lead to misinterpretation of CBC data. Current Interpretive Data was last revised on 2017. Eosinophil pct 4.6 % [facility] (TARIK) Comment: Interpretive Data Percent cell count reference ranges are not reported, since discordance with absolute values may lead to misinterpretation of CBC data. Current Interpretive Data was last revised on 2017. Basophil pct 0.8 % [facility] (TARIK) Comment: Interpretive Data Percent cell count reference ranges are not reported, since discordance with absolute values may lead to misinterpretation of CBC data. Current Interpretive Data was last revised on 2017. Blood 02/21/2025 7:16 AM PET SITTER 02/21/2025 7:18 AM PET SITTER Avel Scherer MD LAB BLOOD ORDERABLES Final R esult TOMA RICKETTS (TARIK) 1 [facility] [place] [address] * (ABNORMAL) CBC with auto differential (02/21/2025 7:16 AM PET SITTER) WBC 7.68 3.80 - 9.90 K/cumm Hgb 14.6 13.0 - 17.5 g/dL [facility] (TAR[place]) Hct 44.1 38.9 - 50.3 % [facility] ([place]) Plt 309 150 - 400 K/cumm [facility] ([place]) MPV 8.8(L) 9.1 - 12.3 fL [facility] ([place]) RBC 5.12 4.30 - 5.80 M/cumm [facility] ([place]) MCV 86.1 81.3 - 96.4 fL [facility] ([place]) MCH 28.5 27.1 - 33.3 pg [facility] ([place]) MCHC 33.1 32.3 - 35.7 g/dL [facility] ([place]) RDW CV 12.7 11.1 - 14.9 % [facility] (TARIK) RDW SD 39.8 35.7 - 48.1 fL [facility] ([place]AR[place]) NRBC abs 0.00 0.00 - 0.01 K/cumm [facility] (TAR[place]) Blood Venous blood specimen / Unknown 02/21/2025 7:16 AM PET SITTER 02/21/2025 7:18 AM PET SITTER Avel Scherer MD LAB BLOOD ORDERABLES Final R esult TOMA RICKETTS (TARIK) [address] [facility] Department [place] [address] * Lipase (02/21/2025 7:16 AM PET SITTER) Lipase 35 10 - 99 Units/L Blood Venous blood specimen / Unknown 02/21/2025 7:16 AM PET SITTER 02/21/2025 7:18 AM PET SITTER us Avel Scherer MD LAB BLOOD ORDERABLES Final R esult [facility] (TARIK) [address] [facility] Department [place] [address] * (ABNORMAL) Comprehensive metabolic panel (02/21/2025 7:16 AM PET SITTER) Sodium 141 135 - 145 mmol/L Potassium, pl 4.2 3.3 - 4.9 mmol/L [facility] ([place]) Chloride 105 97 - 110 mmol/L [facility] ([place]) CO2 28 22 - 32 mmol/L [facility] ([place]) Anion gap 8 2 - 15 mmol/L [facility] ([place]) BUN 12 6 - 25 mg/dL [facility] ([place]) Creatinine 1.04 0.80 - 1.30 mg/dL [facility] ([place]) Glucose 81 70 - 199 mg/dL [facility] (TARIK) Comment: Interpretive Data Fasting glucose >/= 126 mg/dl is diagnostic for diabetes. Fasting is defined as no caloric intake for at least 8 hours. Fasting glucose between 100 mg/dl to 125 mg/dl is diagnostic of prediabetes. In a patient with classic symptoms of hyperglycemia or hyperglycemic crisis, a random glucose >/= 200 mg/dl is diagnostic for diabetes. In the absence of unequivocal hyperglycemia, results should be confirmed by repeat testing. The classification and Diagnosis of Diabetes Diabetes Care 2021; 46: S19-S40. Current interpretive data was last revised 2022. Calcium 9.6 8.5 - 10.3 mg/dL [facility] (TAR[place]) Bilirubin, total 0.2 0.1 - 1.2 mg/dL [facility] ([place]AR[place]) Protein, pl 6.4(L) 6.5 - 8.5 g/dL [facility] ([place]) Albumin 4.3 3.5 - 5.0 g/dL [facility] ([place]) Alk phos 66 40 - 130 Units/L [facility] ([place]) ALT 23 7 - 55 Units/L [facility] ([place]) AST 22 10 - 50 Units/L [facility] (TAR[place]) Blood Venous blood specimen / Unknown 02/21/2025 7:16 AM PET SITTER 02/21/2025 7:18 AM PET SITTER Avel Scherer MD LAB BLOOD ORDERABLES Final R esult TOMA RICKETTS (TARIK) [address] [facility] Department [place] [address] * POCT rapid strep A (01/31/2025 10:16 AM PET SITTER) Rapid Strep A, POC Negative Negative Swab 01/31/2025 10:1 6 AM PET SITTER Roro ANGUIANO POINT OF CARE TEST ORDER AZEEM Final Result * POCT urinalysis dipstick (12/30/2024 10:56 AM CDT) Color, Urine, POC Dark Yellow Clarity, ur, POC Clear Clear Glucose, ur, POC Negative Negative Bilirubin, ur, POC Negative Negative Ketones, ur, POC Negative Negative Specific [place], POC 1.030 1.003 - 1.030 Blood, ur, POC Negative Negative pH, ur, POC 6.0 5.0 - 8.0 Protein, ur, POC Negative Negative Urobilinogen, urine, POC 0.2 0.2 - 1.0 mg/dL Nitrite, ur, POC Negative Negative Leukocytes, ur, POC Negative Negative Lot Number [id number] Urine 12/30/2024 10:5 6 AM CDT Jay Woodward NP POINT OF CARE TEST ORDERABLES F inal Result from Last 3 Months Insurance [facility] OOS [employer] ACCESS OOS [id number] [facility] [place] [id number] Care Teams Pmo Analyst Relationship Specialty Start Date End Date Starla Frazier NP [address] [place] [address] [place] [phone] PCP - General Family Medicine 02/18/25
--- OUTSIDE RECORDS SUMMARY | 2025-03-10 20:51 | XMS_ITS | Clinical Summary ---
Author Organization [facility] Address [address] [place] [address] Phone Care Team Providers Care Junior Systems Engineer Name Role Phone Provider, None Primary Care Provider Unavailabl e Allergies No known active allergies Medications Qulipta 60 MG Tablet Take 60 mg by mouth. 06/25/2024 Active Multiple Vitamin (MULTIVITAMIN PO) Take by mouth. Active ofloxacin (OCUFLOX) 0.3 % Solution Place 5 Drops in affected eye(s) 2 times daily. Active Active Problems No known active problems Social History Tobacco Use Types Packs/Day Years Used Date Smoking Tobacco: Never Smokeless Tobacco: Never Tobacco Cessation:Counseling Given: Not Answered Sex and Gender Information Value Date Recorded Sex Assigned at Not on file Legal Sex Male 4:00 PM CDT Gender Identity Not on file Sexual Orientation Not on file Last Filed Vital Signs Vital Sign Reading Time Taken Comments Blood Pressure 102/80 10/25/2024 4:15 PM CDT Pulse 85 10/25/2024 4:15 PM CDT Temperature 36.8 C (98.2 F) 10/25/2024 4:15 PM CDT Respiratory Rate 16 10/25/2024 4:15 PM CDT Oxygen Saturation 97% 10/25/2024 4:15 PM CDT Inhaled Oxygen Concentration - - Weight - - Height - - Body Mass Index - - Plan of Treatment Health Maintenance Due Date Last Done Comments Hepatitis C Virus (HCV) Screening 1980 TdaP Immunization 1980 Varicella Immunization (1 of 2 - 13+ 2-dose series) 1993 Hepatitis B Immunization (1 of 3 - 19+ 3-dose series) 09/08/1999 Human Papillomavirus (HPV) Immunization (1 - 3-dose SCDM series) 09/08/2007 Influenza Immunization (#1) 2024 SARS-COV-2 Immunization ( season) 2024 04/25/2021, 09/14/2020, 08/17/2020 Respiratory Syncytial Virus (RSV) Immunization (Adult) (1 - 1-dose 75+ series) 09/08/2055 Meningococcal Immunization (ACWY) Aged Out No longer eligible b ased on patient's age to complete this topic Pneumococcal Immunization Combined Aged Out No longer eligible b ased on patient's age to complete this topic Rotavirus Immunization Aged Out No lo nger eligible based on patient's age to complete this topic Insurance [facility] Care Teams Junior Systems Engineer Relationship Specialty Start Date End Date Provider, None [place] PCP - General 10/25/24
== END 2025-03-10 17:55 | disposition home or self-care (01) ==
PROVIDERS: Emergency Provider Emergency Medicine
DX: R07.89 Other chest pain (principal); I45.10 Unspecified right bundle-branch block
CPT/HCPCS: 36415; 71046; 71275; 74174; 80053; 83690; 84484; 85025; 85610; 85730; 93005; 96374; 96375; 99284; J2270; J2470; Q9967